=== PATIENT | male | born 1970 | race African-American/Black ===

== ENCOUNTER 2023-10-21 14:30 | Emergency (ER) | payer OTHER, SELFPAY ==
[2023-10-21 14:34] VITALS: BP 151/107
--- NOTE | 2023-10-21 15:26 | ED.GENMED ---
History of Present Illness
General
Chief Complaint: Airway Problem
Source: patient, records, ambulance crew and [facility]
Exam Limitations: none
Time Seen by Provider: 10/21/23 15:11
Travel History
Have you had any contact with someone who has COVID-19?: No
Do you have any symptoms of coronavirus? Fever > 100 degrees, chills, cough, shortness of breath, sore throat, loss of taste or smell, muscle aches, or headache?: No
History of Present Illness
History of Present Illness:
53-year-old male with a past medical history of DVT, CHF, atrial fibrillation on pacemaker, ESRD on dialysis, chronic tracheostomy who presents to the emergency department for evaluation of trach dislodgment. Patient has been at [facility] since
10/12/2023 after hospitalization at [facility]. Patient says that he had tracheostomy placed as a result of a prolonged critical illness about 6 months ago. He says that he has been on 2 to 3 L nasal cannula as needed but has not been on
ventilator or trach collar recently. It sounds like today his tracheostomy became dislodged. EMS was called to bring him to the hospital. Apparently it was replaced on the scene but patient still brought in to be assessed. Patient denies any
specific complaints today.
Review of Systems
Review of Systems
All Other Systems: ROS reviewed and negative except as documented in HPI and ROS
EENT: Reports other (Denies neck pain)
Respiratory: Denies trouble breathing
Cardiac: Denies chest pain
ABD/GI: Denies abdominal pain
Neurological: Denies headache
Phy Exam
Physical Exam
Physical Exam:
General: Awake, alert; no acute distress
Head: Normocephalic, atraumatic
Eyes: Conjunctiva normal, sclera anicteric
Throat: Airway intact, handling secretions
Neck: Trachea midline, tracheostomy in place (6 uncuffed)
Lungs: Clear to auscultation bilaterally, no wheezing, rales, rhonchi
Heart: Regular rate and rhythm, no murmurs, gallops, or rubs; left chest wall dialysis port in place
Neuro: Cranial nerves grossly intact, moving all extremities equally
Extremities: Warm and well-perfused
Scores
Heart Failure Risk
Heart Failure Risk Score: Not Applicable
Heart Score for Chest Pain Patients
STEMI patient?: Not applicable
Withdrawal Assessment of Alcohol
Withdrawal Assessment Completed?: Not applicable
Course
Orders/Labs/Results
Orders:
Orders
10/21/23 16:53
Ipratropium/Albuterol Sulfate [Duoneb] 3 ml INH R NOW STA
Vital Signs
Initial and Last Documented VS:
Initial Vital Signs
Temp Pulse Resp BP Pulse Ox
36.6 C 84 20 151/107 97
10/21/23 14:34 10/21/23 14:34 10/21/23 14:34 10/21/23 14:34 10/21/23 14:34
Last Documented Vital Signs
Temp Pulse Resp BP Pulse Ox
36.6 C 81 16 180/82 96
10/21/23 14:34 10/21/23 16:37 10/21/23 16:37 10/21/23 16:37 10/21/23 16:37
MDM/Problems Addressed
Differential Diagnosis Includes:
Trach dislodged
MDM/Problems Addressed:
53-year-old male presents after transient dislodgment of his chronic tracheostomy (was reportedly placed 6 months ago). It sounds that it was replaced in the field he arrives with tracheostomy in place. He has no complaints. Call placed to
respiratory to replace collar and secure in place. Can likely be discharged thereafter.
Collar replaced and secured by outer diameter technician. Patient remained stable. He is due for his regular DuoNeb treatment and is requesting it we will provide it here. Will plan for discharge at this point, continue to monitor while waiting transport.
Chronic conditions affecting care:
CHF
Acute Exacerbation and/or Progression of Chronic Illness:
Acutely hypertensive
Acute Exacerbation and/or Progression of Chronic Illness: HTN
*Pulse Oximetry
Patient hypoxic: no
*Critical Care Note
Total Time (30-74mins, 75-104mins- exclusive of procedures): Not Applicable
Data Reviewed
Source: patient, records, ambulance crew and [facility]
Patient Management
Discussion with other providers: custodial staff (Spoke directly with [facility] staff)
ED Attending Note
-
Portions of this chart may have been created with voice recognition software.� Occasional wrong word or��sound alike� substitutions may have occurred due to the inherent limitations of voice recognition software.
Discharge Plan
Departure
Patient Disposition: Home (Routine Discharge)
Date of Disposition: 10/21/23
Time of Disposition: 16:58
Patient with high blood pressure during this ER visit?: Yes
Discharge Problem:
Tracheostomy, acute management
Instructions: Tracheotomy (DC)
Referrals:
Vadim Ward DO [Family Provider] - Call in 1-3 days for appt
Matthew Alcantara MD [Active] - As needed
Activity Restrictions/Additional Instructions:
Thank you for visiting the Emergency Department at [facility].
1. Please schedule a follow up appointment as directed. Call first thing tomorrow morning to make an appointment.
2. If indicated, please take your medications as instructed and indicated on discharge paperwork.
3. If any of your symptoms do not improve, or persist, or become more severe within 6-12 hours, please return to the emergency department for further care.
4. Please return to the emergency department if you develop a headache, neck pain/stiffness, fever greater than 100.4F, chest pain, shortness of breath, persistent nausea, vomiting, slurred speech, difficulty walking, numbness/tingling, weakness,
signs of infection or any other symptoms that are worrisome to you.
Please call [phone] if you have any questions.
Interventions
Interventions:
*Risk Screen - Suicide Last Done: 10/21/23 14:44
*General Assessment Last Done: 10/21/23 14:44
*Neglect/Abuse Screening Last Done: 10/21/23 14:44
*ED COVID-19 Vaccine History Last Done: 10/21/23 14:43
ED- Pulmonary Assessment Last Done: 10/21/23 14:45
--- NOTE | 2023-10-21 16:02 | RESPNOTE ---
trach care ties replaced to make tighter fit on patient, patient states he is breathing well after change
[2023-10-21 16:37] VITALS: BP 180/82
[2023-10-21] MEDS: DUONEB 3 ML INH (17:04)
[2023-10-21 18:53] VITALS: BP 186/88
--- NOTE | 2023-10-21 19:44 | EDRN ---
EMS came to pick pulling machine tender pt. Pt states he can't fit his inner canula into the trach, respiratory therapist called, pt's inner canula is in place.
== END 2023-10-21 19:55 | disposition home or self-care (01) ==
LOC: EMR 14:30
PROVIDERS: EMERGENCY PHYSICIAN Emergency Medicine; FAMILY PHYSICIAN Internal Medicine
DX: Z43.0 Encounter for attention to tracheostomy (principal); I48.91 Unspecified atrial fibrillation; I13.2 Hypertensive heart and chronic kidney disease with heart failure and with stage 5 chronic kidney disease, or end stage renal disease; I50.9 Heart failure, unspecified; N18.6 End stage renal disease; Z99.2 Dependence on renal dialysis; Z95.0 Presence of cardiac pacemaker; Z86.718 Personal history of other venous thrombosis and embolism
CPT/HCPCS: 99283

== ENCOUNTER 2023-10-22 13:00 | Emergency (ER) | payer OTHER, SELFPAY ==
--- NOTE | 2023-10-22 13:10 | EDRN ---
1300 EMS arrived to ED room 41 with staff waiting for witnessed cardiac arrest. EMS treated the patient for 30 minutes prior to arrival.
4 doses of epi through IO
1 dose calcium IO
1 dose sodium bicarb IO
PEA with CPR
1301 CPR continued on the stretcher
[address] Khan for 1 amp calcium chloride and given
1305 patient in Vtach
1305 shock given at 200j
Patient asystole
1307 Dr. Khan ended the code.
--- NOTE | 2023-10-22 13:15 | ED.GENMED ---
History of Present Illness
General
Chief Complaint: CODE
Source: ambulance crew
Time Seen by Provider: 10/22/23 13:00
History of Present Illness
History of Present Illness:
53-year-old male presents to the emergency room via ambulance from [facility] in cardiac arrest. Medics were called because the patient had missed dialysis yesterday.
Phy Exam
Physical Exam
Physical Exam:
CODE EXAM:
VITAL SIGNS: No palpable blood pressure, no pulses, no respiration.
GENERAL EXAM: Mottled
EYES: Pupils fixed
ENT: Patient intubated with an i-gel
NECK: Tracheostomy stoma covered with Tegaderm providing adequate seal
Chest: Left-sided dialysis catheter present
RESPIRATORY: Equal breath sounds with bagging
CARDIAC: Absent heart sounds
VASCULAR: Absent pulses
ABDOMEN: Soft no masses
MUSCULOSKELETAL: , unable to evaluate strength
EXTREMITIES: No edema or contractures, right tibia interosseous access present
SKIN: No rash
Course
Orders/Labs/Results
Orders:
Orders
10/22/23 13:01
Calcium CHLORIDE [Calcium Chloride 10% Syringe] 2,000 mg .ROUTE .STK-MED ONE
EPINEPHrine [Adrenalin 1 mg/10 ml] 1 mg .ROUTE .STK-MED ONE
MDM/Problems Addressed
Differential Diagnosis Includes:
respiratory arrest, hyperkalemia, pulmonary edema, ami
MDM/Problems Addressed:
Patient presents to the emergency room via medics in cardiac arrest. Medics state they have been running the code for 30 minutes. Wide-complex rhythm on the monitor noted to be in the 110s. No pulse with this. CPR ongoing as the patient arrived
to the emergency room. Medics had given multiple doses of bicarb, epi and a dose of calcium gluconate prior to arrival. Given the wide-complex rhythm history of end-stage renal disease in fact he did not have dialysis yesterday was concerned that
his cardiac arrest may be due to hyperkalemia. He does have central access in the form of his dialysis catheter. This was flushed and the patient was given a amp of calcium chloride. After about 1 minute the patient converted from a wide-complex
tachycardic rhythm to ventricular fibrillation. He was defibrillated and the resultant rhythm was asystole. Given the prolonged downtime and the fact the patient converted to asystole there is essentially 0 prognosis for meaningful recovery.
Patient declared at 1307.
I called the phone number provided by Elle chew for the patient's next of kin, Ani Jain. This phone number, is not in service.
Called Elle Chewmarcela who provided # for pt's father, Ramone Blanco ([phone]) who resides in the [facility]. Given he is not close to the hospital I did inform him of the patient's .
He was able to provide an accurate number for Jodie, pt's sister ([phone]), who also informed of pt's given she lives [address] Aiken informed of pt's . They will certify
*Critical Care Note
Total Time (30-74mins, 75-104mins- exclusive of procedures): Not Applicable
ED Attending Note
-
Portions of this chart may have been created with voice recognition software.� Occasional wrong word or��sound alike� substitutions may have occurred due to the inherent limitations of voice recognition software.
Discharge Plan
Departure
Patient Disposition:
Date of Disposition: 10/22/23
Time of Disposition: 13:27
Discharge Problem:
Respiratory arrest, Cardiac arrest, End stage renal disease on dialysis
Referrals:
Vadim Ward I., DO [Family Provider] -
--- NOTE | 2023-10-22 14:45 | EDRN ---
[facility] contacted spoke with Lory Koroma. Patient for tissues and cornea
== END 2023-10-22 15:32 | disposition expired ==
LOC: EMR 13:00
PROVIDERS: EMERGENCY PHYSICIAN Emergency Medicine; FAMILY PHYSICIAN Internal Medicine
DX: I46.9 Cardiac arrest, cause unspecified (principal); N18.6 End stage renal disease; Z99.2 Dependence on renal dialysis
CPT/HCPCS: 99285; 92950